=== PATIENT | female | born 1960 | race Caucasian/White ===

== ENCOUNTER 2016-02-16 14:10 | Emergency (ER) | payer MEDICAID, SELFPAY ==
[2016-02-16] MEDS ORDERED: KETOROLAC 30 MG/ML VIAL ONE (15:38)
[2016-02-16] MEDS ORDERED: ONDANSETRON 4 MG VIAL ONE (15:38)
[2016-02-16] MEDS ORDERED: SODIUM CHLORIDE 0.9% 1,000 ML ONE (15:38)
[2016-02-16] MEDS ORDERED: POTASSIUM CHLOR 10MEQ -ED ONLY 50 ML IV ONE (16:03)
[2016-02-16] MEDS ORDERED: KCL CR 20 MEQ TAB PO ONE (16:04)
== END 2016-02-16 17:40 | disposition home or self-care (01) ==
LOC: ER 14:10
CPT/HCPCS: 36415; 74022; 80053; 81001; 83690; 85025; 87077; 87088; 87186; 96361; 96365; 96375